=== PATIENT | female | born 1980 | race Two or more races ===

== ENCOUNTER 2025-03-23 13:20 | Emergency (ER) | payer OTHER ==
[~2025-03-23] VITALS: Ht 160 cm; Wt 39.9 kg
[2025-03-23 13:23] VITALS: BP 144/77
[2025-03-23] MEDS ORDERED: AMOX-427 PO (14:32)
[2025-03-23] MEDS ORDERED: GUAI5SYR4 PO (14:32)
[2025-03-23 14:45] VITALS: BP 144/77; TEMP 98.5; O2SAT 98
== END 2025-03-23 14:46 | disposition home or self-care (01) ==
LOC: ER 13:29
DX: H65.93 Unspecified nonsuppurative otitis media, bilateral (principal); J40 Bronchitis, not specified as acute or chronic; F17.200 Nicotine dependence, unspecified, uncomplicated; R61 Generalized hyperhidrosis; Z87.01 Personal history of pneumonia (recurrent)
CPT/HCPCS: A4606; A4663